=== PATIENT | male | born 1985 | race Caucasian/White ===

== ENCOUNTER → 2022-10-10 10:50 | Outpatient (CLI) | payer OTHER, SELFPAY ==
--- NOTE | 2022-10-10 10:54 | DI.RAD.S_ITS ---
PROCEDURE: XR FOOT RT MIN 3V INDICATIONS: Right foot pain TECHNIQUE: 3 views of the foot were acquired. COMPARISON: None. FINDINGS: Bones: No fractures or dislocations. No suspicious bony lesions. Subcortical cyst in the proximal phalanx of the 1st digit. Mild joint degeneration and trace articular surface irregularity. Soft tissues: No tibiotalar joint effusion. Achilles tendon appears normal. 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 Dictated by: Nallely Moore M.D. on 10/10/2022 at 15:20 Approved by: Nallely Moore M.D. on 10/10/2022 at 15:21
--- NOTE | 2022-10-10 10:54 | DI.RAD.S_ITS ---
PROCEDURE: XR ANKLE RT MIN 3V INDICATIONS: Right foot pain TECHNIQUE: Three views of the ankle were acquired. COMPARISON: None. FINDINGS: Bones: No fractures or dislocations. Ankle mortise is normally aligned. No suspicious bony lesions. Tiny plantar calcaneal spur. Soft tissues: No tibiotalar joint effusion. Achilles tendon appears normal. IMPRESSION: Intact right ankle. Dictated by: Nallely Moore M.D. on 10/10/2022 at 15:20 Approved by: Nallely Moore M.D. on 10/10/2022 at 15:20
[2022-10-10 13:11] LABS: Uric Acid 8.1 mg/dL (3.5-8.5)
== END ==
PROVIDERS: Referring Provider Nurse Practitioner Family; Visit Provider Nurse Practitioner Family
DX: S99.911A Unspecified injury of right ankle, initial encounter (principal); M79.671 Pain in right foot; M79.676 Pain in unspecified toe(s)
CPT/HCPCS: 36415; 73610; 73630; 84550

== ENCOUNTER → 2024-03-26 07:33 | Outpatient (CLI) | payer OTHER, SELFPAY | DX: R20.0 Anesthesia of skin (principal) | CPT/HCPCS: 95886; 95909 ==